=== PATIENT | female | born 1930 | race Caucasian/White ===

== ENCOUNTER 2020-12-10 09:31 | Emergency (ER) | payer MEDICARE ==
[~2020-12-10] VITALS: Ht 157.5 cm; Wt 71.4 kg
--- NOTE | 2020-12-10 10:32 | REP ---
INDICATION: DYSPNEA/COUGH. COMPARISON: None TECHNIQUE: PA and lateral plain film study of the chest. FINDINGS: There is focal increased density posteriorly inferiorly in the lower lobes seen to best advantage on the lateral view. There are no comparison studies to determine if this is chronic or acute. The lung de guzman are otherwise clear. Cardiac size is normal. The cornelia, mediastinum, and skeletal structures are unremarkable. IMPRESSION: Focal density posteriorly inferiorly in the lower lobes on the lateral view that could be chronic or acute. <Electronically signed by Sukumar Burk > 12/10/20 1020
[2020-12-10 11:00] LABS: BASO # 0.1 10^3/uL (0.0-0.2); BASO % 0.9 % (0.0-1.0); EOS # 0.2 10^3/uL (0.0-0.5); EOS % 2.7 % (0.0-3.0); HEMATOCRIT 34.8 % (36.0-47.0); HEMOGLOBIN 11.2 g/dl (12.0-15.5); LYMPH # 1.4 10^3/uL (1.5-5.0); LYMPH % 18.5 % (24.0-44.0); MEAN CORPUSCULAR HEMOGLOBIN 22.6 pg (27.0-33.0); MEAN CORPUSCULAR HGB CONC 32.2 g/dl (32.0-36.5); MEAN CORPUSCULAR VOLUME 70.3 fl (80.0-96.0); MONO # 0.4 10^3/uL (0.0-0.8); MONO % 4.8 % (2.0-8.0); NEUTROPHILS # 5.6 10^3/uL (1.5-8.5); NEUTROPHILS % 72.5 % (36.0-66.0); PLATELET COUNT, AUTOMATED 325 10^3/uL (150-450); RED BLOOD COUNT 4.95 10^6/uL (4.00-5.40); WHITE BLOOD COUNT 7.7 10^3/uL (4.0-10.0)
[2020-12-10 11:33] LABS: ALBUMIN 3.8 GM/DL (3.2-5.2); ALT/SGPT 23 U/L (12-78); BILIRUBIN,DIRECT 0.2 MG/DL (0.0-0.2); BILIRUBIN,TOTAL 0.7 MG/DL (0.2-1.0); BLOOD UREA NITROGEN 14 MG/DL (7-18); CALCIUM LEVEL 10.6 MG/DL (8.8-10.2); CARBON DIOXIDE LEVEL 31 MEQ/L (21-32); CHLORIDE LEVEL 105 MEQ/L (98-107); CK-MB VALUE MASS 1.7 NG/ML (<3.6); CPK CREATINE PHOSPHOKINASE 55 U/L (26-192); CREATININE FOR GFR 0.47 MG/DL (0.55-1.30); GLOMERULAR FILTRATION RATE > 60.0 (>32); GLUCOSE, FASTING 140 MG/DL (70-100); MB/CK RELATIVE INDEX 3.09 (< OR =4); NT-PRO BNP 440 PG/ML (<450); POTASSIUM SERUM 4.4 MEQ/L (3.5-5.1); SODIUM LEVEL 140 MEQ/L (136-145); TOTAL PROTEIN 6.5 GM/DL (6.4-8.2); TROPONIN I < 0.02 NG/ML (< 0.10)
[2020-12-10] MEDS ORDERED: IPRATROPIUM 0.5MG/ALBUTEROL 2.5MG INH SOL UD 3ML (DUONEB) NEB ONE (13:00)
[2020-12-10] MEDS ORDERED: ALBUTEROL SULFATE 2.5 MG/0.5 ML INH NEB SOLN NEB ONE (13:00)
[2020-12-10] MEDS ORDERED: methylPREDNISolone 125MG 2ML VIAL IV ONE (13:00)
[2020-12-10] MEDS ORDERED: PRED10TA2 PO (13:41)
[2020-12-10 14:00] VITALS: BP 179/74
--- NOTE | 2020-12-11 07:47 | ECGEPIP ---
[facility] - ED Test Date: 2020-12-10 Pat Name: SUZY GRISSOM Department: Room: - Gender: Female Parts Representative: MARY JANE : [id number] Requested By: JHON Parekh Order Number: [id number] Reading MD: Brandt Tom Measurements Intervals [place] Rate: 84 P: 81 NE: 174 QRS: 35 QRSD: 72 T: 50 QT: 364 QTc: 430 Interpretive Statements Normal sinus rhythm POOR R WAVE PROGRESSION BASELINE ARTIFACT AFFECTS INTERPRETATION NO PRIORS FOR COMPARISON Electronically Signed on 12-11-2020 7:47:22 EDT by Brandt Tom
--- NOTE | 2020-12-11 09:19 | ED PDOC ---
Post-Departure Follow-Up radiology repor tfaxed to santhosh Stephen Sarah MD Dec 11, 2020 09:19
== END 2020-12-10 14:12 | disposition home or self-care (01) ==
LOC: M ED 09:31
DX: J44.1 Chronic obstructive pulmonary disease with (acute) exacerbation (principal); I10 Essential (primary) hypertension; I71.4 Abdominal aortic aneurysm, without rupture; Z87.891 Personal history of nicotine dependence
CPT/HCPCS: 71046; 80048; 80076; 82550; 82553; 83880; 84443; 84484; 85025; 93005; 93041; 94760; 96374; 99285; J2930